=== PATIENT | male | born 1965 | race Caucasian/White ===

== ENCOUNTER 2019-03-03 12:27 | Emergency (ER) | payer MEDICARE, OTHER ==
[~2019-03-03] VITALS: Ht 182.9 cm; Wt 84.8 kg
--- NOTE | 2019-03-03 12:31 | NUR ---
[id number], FROM HOME, TRIPPED AND FALL, -KO, C/O R SHOULDER AND RIB PAIN, TO ER BED 11, HOOKED TO MONITOR, CHANGED TO GOWN, PROVIDED W WARM BLANKET, AWAITING MD OG.
--- NOTE | 2019-03-03 12:34 | NUR ---
ISHMAEL VALDEZ AT BEDSIDE
[2019-03-03] MEDS ORDERED: LORAZEPAM INJ 2 MG/ML VIAL IVP ONE (13:00)
[2019-03-03] MEDS ORDERED: IV NS 0.9% 1,000 ML BAG IV ONE (13:00)
[2019-03-03] MEDS ORDERED: LORAZEPAM INJ 2 MG/ML VIAL ONE (13:02)
[2019-03-03] MEDS ORDERED: KETOROLAC TROMETHAMINE INJ 30 MG/ML VIAL ONE (13:27)
[2019-03-03] MEDS ORDERED: KETOROLAC TROMETHAMINE INJ 30 MG/ML VIAL IV ONE (13:30)
--- NOTE | 2019-03-03 16:07 | NUR ---
IV removed. Catheter intact and site benign. Pressure and 4x4 applied to site. No bleeding noted.Patient discharged to home in stable condition. Written and verbal after care instructions given. Patient verbalizes understanding of instruction.
[2019-03-03 16:18] VITALS: BP 106/55
== END 2019-03-03 16:15 | disposition home or self-care (01) ==
LOC: ER 12:27
DX: S09.8XXA Other specified injuries of head, initial encounter (principal); M25.511 Pain in right shoulder; F10.10 Alcohol abuse, uncomplicated; F41.9 Anxiety disorder, unspecified; I10 Essential (primary) hypertension; R47.81 Slurred speech; Y90.9 Presence of alcohol in blood, level not specified; Z98.890 Other specified postprocedural states; W01.0XXA Fall on same level from slipping, tripping and stumbling without subsequent striking against object, initial encounter; Y93.89 Activity, other specified; Y92.89 Other specified places as the place of occurrence of the external cause; Y99.8 Other external cause status
CPT/HCPCS: 70450; 73030; 96374; 96375; 99284; J1885; J2060; J7030